=== PATIENT | male | born 1985 | race Caucasian/White ===

== ENCOUNTER 2019-05-29 20:38 | Emergency (ER) | payer BC, OTHER ==
[~2019-05-29] VITALS: Ht 177.8 cm; Wt 64.9 kg
[2019-05-29] MEDS ORDERED: METHOCARBAMOL (500MG) 500 MG TABLET ONE (21:16)
[2019-05-29] MEDS ORDERED: KETOROLAC TROMETHAMINE INJ 30 MG/ML VIAL ONE (21:16)
--- NOTE | 2019-05-29 21:20 | NUR ---
KIMBERLY FROM HOME TO ER BED 9. AAOX4. NO RESP DISTRESS NOTED. ANXIOUS. C/O L SHOULDER, L UPPER CHEST, L NECK AND L ARM SPASM AND PAIN. PER PT HE HAVE A CHRONIC SPASM AND ON BACLOFEN HOWEVER HE IS GETTING OFF THE MEDICATION FOR A PROCEDURE. SPASM HAS BEEN GOING ON FOR SEVERAL DAYS BUT WORST TODAY. PT REPORTS THAT HE HAVE TAKEN A USUAL DOSE OF HIS BACLOFEN AND SOMEHOW HELPS. HE ALSO REPORTS TAKING ATIVAN BECAUSE HE IS FEELING ANXIOUS. PA AT BEDSIDE FOR EVAL. ORDERS RECEIVED NOTED AND CARRIED OUT.
[2019-05-29] MEDS ORDERED: METHOCARBAMOL (750MG) 750 MG TABLET PO SCH (21:30)
[2019-05-29] MEDS ORDERED: KETOROLAC TROMETHAMINE INJ 60 MG/2 ML VIAL IM ONE (21:30)
--- NOTE | 2019-05-29 22:46 | NUR ---
Patient discharged to home in stable condition. Written and verbal after care instructions given. Patient verbalizes understanding of instruction. Pt ambulatory with a steady gait
[2019-05-29 22:47] VITALS: BP 108/62
== END 2019-05-29 22:47 | disposition home or self-care (01) ==
LOC: ER 20:42
DX: M62.838 Other muscle spasm (principal); G89.29 Other chronic pain; F41.9 Anxiety disorder, unspecified; K21.9 Gastro-esophageal reflux disease without esophagitis; J45.909 Unspecified asthma, uncomplicated; Z88.1 Allergy status to other antibiotic agents
CPT/HCPCS: 96372; 99283; J1885